=== PATIENT | male | born 1960 | race Asian ===

== ENCOUNTER 2018-09-08 12:09 | Inpatient (IN) | payer OTHER ==
[2018-09-08] MEDS: SOD CHLORIDE 0.9% 1,000 ML IV ×2 (01:30→15:54)
[~2018-09-08 12:09] MED LIST: ALBUMIN HUMAN 25% 100 ML INJ; ALBUMIN HUMAN 5% 250 ML INJ; CA CHLORIDE 10% 10 ML SYRINGE; CEFAZOLIN 1 GM INJ; KETAMINE (50 MG/ML) 10 ML VIAL; NA BICARBONATE 8.4% 50 ML SYG; ONDANSETRON 4 MG INJ; metroNIDAZOLE 500 MG/100 ML NS IVPB
[2018-09-08] MEDS: morphine 4 MG/ML VIAL IV ×2 (15:14→17:30)
[2018-09-08 15:45] LABS: WHITE BLOOD COUNT 15.3 10^3/ul (4.8-10.8)
[2018-09-08 15:45] LABS: ABNORMAL IP MESSAGE 1; HEMOGLOBIN 11.7 g/dl (14.0-18.0); MEAN CORPUSCULAR HEMOGLOBIN 31.4 pg (29.0-33.0); MEAN CORPUSCULAR HGB CONC 32.5 g/dl (32.0-37.0); MEAN CORPUSCULAR VOLUME 96.5 fl (82.0-101.0); NUCLEATED RED BLOOD CELLS% 0.2 /100WBC (0.0-0.0); PLATELET COUNT 498 10^3/UL (140-415); POSITIVE DIFF @See below; RED BLOOD COUNT 3.73 10^6/ul (4.70-6.10); RED CELL DISTRIBUTION WIDTH 16.1 % (11.5-14.5)
[2018-09-08] MEDS: ONDANSETRON 4 MG INJ IV (15:54)
[2018-09-08] MEDS: KETOROLAC 30 MG INJ IV (15:54)
[2018-09-08 16:07] LABS: ALANINE AMINOTRANSFERASE 17 IU/L (13-69); ALBUMIN 3.3 g/dl (3.3-4.9); ALBUMIN/GLOBULIN RATIO 0.89; ALKALINE PHOSPHATASE 203 IU/L (42-121); ANION GAP 11 (5-13); ASPARTATE AMINO TRANSFERASE 36 IU/L (15-46); BILIRUBIN,INDIRECT 0.5 mg/dl (0-1.1); BILIRUBIN,TOTAL 0.5 mg/dl (0.2-1.3); BLOOD UREA NITROGEN 40 mg/dl (7-20); CARBON DIOXIDE 24 mmol/L (21-31); CHLORIDE 104 mmol/L (97-110); Estimated GFR 35 mL/min (>60); GLUCOSE 76 mg/dl (70-220); LIPASE 206 U/L (23-300); POTASSIUM 5.4 mmol/L (3.5-5.1); SODIUM 139 mmol/L (135-144)
[2018-09-08 16:13] LABS: ADD MAN DIFF? YES
[2018-09-08 16:18] LABS: TROPONIN-I < 0.012 ng/ml (0.000-0.120)
[2018-09-08] MEDS: SODIUM CHLORIDE 0.9% 1L BAG IV* (16:41)
[2018-09-08] MEDS: PIPER-TAZO 3.375 GM IV (PMX) 100 ML IVPB (16:41)
[2018-09-08] MEDS ORDERED: ONDANSETRON 4 MG INJ IV ×3 (17:00→22:00)
[2018-09-08] MEDS ORDERED: ACETAMINOPHEN 325 MG TAB PO (17:00)
[2018-09-08 17:03] LABS: ANISOCYTOSIS 1+ (0-0); BAND NEUTROPHILS #M 10.4 10^3/ul (0.0-0.6); BAND NEUTROPHILS % (M) 68 % (0-4); LYMPHOCYTES #M 0.7 10^3/ul (0.8-2.9); LYMPHOCYTES % (M) 5 % (15-51); MONOCYTE #M 1.2 10^3/ul (0.3-0.9); MONOCYTES % (M) 8 % (0-11); PLATELET ESTIMATE INCREASED; POIKILOCYTOSIS 1+ (0-0); POLYCHROMASIA 1+ (0-0); REACTIVE LYMPHOCYTES #M 0.9 10^3/ul (0.0-0.0); REACTIVE LYMPHOCYTES% (M) 6 % (0-0); SEG NEUT #M 3.6 10^3/ul (1.6-7.5); SEGMENTED NEUTROPHILS (M) % 13 % (39-77); SMUDGE%M 56 % (0-0)
[2018-09-08] MEDS ORDERED: NACL 0.9% 3 ML SYG IV (17:30)
[2018-09-08] MEDS: CALCIUM GLUCONATE 10% 2 GM in DEXTROSE 5% 100 ML IVPB (17:30)
[2018-09-08 17:42] LABS: URIC ACID 13.3 mg/dl (3.1-7.9)
[2018-09-08 17:51] LABS: B-TYPE NATRIURETIC PEPTIDE 27300 PG/ML (0-125)
[2018-09-08 17:57] LABS: HEMOGLOBIN A1C 5.6 % (0-5.9)
[2018-09-08] MEDS ORDERED: PIPER-TAZO 3.375 GM IV (PMX) 100 ML IVPB (18:00)
[2018-09-08] MEDS: PANTOPRAZOLE 40 MG INJ IV (18:00)
[2018-09-08 18:14] LABS: C-REACTIVE PROTEIN 14.3 mg/dl (0.0-0.9)
[2018-09-08] MEDS ORDERED: FENTAnyl 50 MCG/ML VIAL (19:15)
[2018-09-08] MEDS ORDERED: METHYLENE BLUE 1% 10 ML INJ (20:43)
[2018-09-08] MEDS ORDERED: ETOMIDATE 20 MG INJ (20:59)
[2018-09-08] MEDS ORDERED: GLYCOPYRROLATE 0.4 MG INJ (21:00)
[2018-09-08] MEDS ORDERED: LIDOCAINE 2% (SDV) 5 ML INJ (21:00)
[2018-09-08] MEDS ORDERED: SUCCINYLCHOLINE CHLORIDE 100 MG/5 ML SYG IV (21:00)
[2018-09-08] MEDS ORDERED: ROCURONIUM 50 MG INJ (21:00)
[2018-09-08] MEDS ORDERED: NEOSTIGMINE 3 MG/3 ML SYRINGE (21:00)
[2018-09-08] MEDS ORDERED: ROPIVACAINE 0.5 % 30 ML VIAL (21:00)
[2018-09-08] MEDS ORDERED: THROMBIN (BOVINE) 5,000 UNIT VIAL TP (21:13)
[2018-09-08] MEDS: CEFAZOLIN 1 GM INJ (21:18)
[2018-09-08] MEDS ORDERED: PHENYLephrine 10 MG INJ (21:38)
[2018-09-08] MEDS ORDERED: SUGAMMADEX SODIUM 200 MG/2 ML VIAL IV (22:05)
[2018-09-08 22:56] LABS: ABNORMAL IP MESSAGE 1; HEMATOCRIT 29.7 % (42.0-52.0); HEMOGLOBIN 9.3 g/dl (14.0-18.0); MEAN CORPUSCULAR HEMOGLOBIN 30.8 pg (29.0-33.0); MEAN CORPUSCULAR HGB CONC 31.3 g/dl (32.0-37.0); MEAN CORPUSCULAR VOLUME 98.3 fl (82.0-101.0); MEAN PLATELET VOLUME 9.2 fl (7.4-10.4); NUCLEATED RED BLOOD CELLS% 0.1 /100WBC (0.0-0.0); PLATELET COUNT 419 10^3/UL (140-415); POSITIVE DIFF @See below; RED BLOOD COUNT 3.02 10^6/ul (4.70-6.10); RED CELL DISTRIBUTION WIDTH 16.4 % (11.5-14.5)
[2018-09-08 22:56] LABS: WHITE BLOOD COUNT 23.2 10^3/ul (4.8-10.8)
[2018-09-08 22:59] LABS: HOLD TRANSMISSIONS 1
[2018-09-08 23:00] LABS: ADD MAN DIFF? YES
[2018-09-08 23:03] LABS: ADD UMIC YES; UR ASCORBIC ACID NEGATIVE (NEGATIVE); UR BACTERIA FEW /HPF (NONE SEEN); UR BILIRUBIN (Dip) NEGATIVE (NEGATIVE); UR BLOOD (Dip) 1+ mg/dL (NEGATIVE); UR CLARITY SLIGHTLY CLOUDY (CLEAR); UR COLOR YELLOW (YELLOW); UR GLUCOSE (Dip) NEGATIVE (NEGATIVE); UR KETONES (Dip) NEGATIVE (NEGATIVE); UR LEUKOCYTE ESTERASE (Dip) TRACE Leu/ul (NEGATIVE); UR MUCUS FEW /HPF (NONE SEEN); UR NITRITE (Dip) NEGATIVE (NEGATIVE); UR RBC 4 /HPF (0-5); UR SPECIFIC GRAVITY (Dip) 1.016 (1.003-1.030); UR SQUAMOUS EPITHELIAL CELL FEW /HPF (FEW); UR TOTAL PROTEIN (Dip) 2+ mg/dl (NEGATIVE); UR UROBILINOGEN (Dip) NEGATIVE (NEGATIVE); UR WBC 4 /HPF (0-5)
[2018-09-08 23:08] LABS: AADO2 Arterial 247.3 mmHg (7.0-24.0); Arterial Base Excess -6.8 mmol/L (-3.0-3); Arterial Blood Gas Oxygen Sat 98.2 mmHG (95.0-98.0); Arterial COHb 0.1 % (0.0-3.0); Arterial HCO3 18.7 mmol/L (22.0-26.0); Arterial MetHb 0.1 % (0.0-1.5); Arterial pCO2 37.3 mmhg (35-45); MODE MASK - SIMPLE; Site A-Line
[2018-09-08] MEDS ORDERED: NA BICARBONATE 8.4% 50 ML SYG (23:09)
[2018-09-08 23:14] LABS: ALANINE AMINOTRANSFERASE 23 IU/L (13-69); ALBUMIN 3.4 g/dl (3.3-4.9); ALBUMIN/GLOBULIN RATIO 1.21; ALKALINE PHOSPHATASE 119 IU/L (42-121); ANION GAP 14 (5-13); ASPARTATE AMINO TRANSFERASE 36 IU/L (15-46); BILIRUBIN,INDIRECT 0.3 mg/dl (0-1.1); BILIRUBIN,TOTAL 0.3 mg/dl (0.2-1.3); CALCIUM 9.3 mg/dl (8.4-10.2); CARBON DIOXIDE 18 mmol/L (21-31); CHLORIDE 109 mmol/L (97-110); Estimated GFR 36 mL/min (>60); GLUCOSE 67 mg/dl (70-220); SODIUM 141 mmol/L (135-144); TOTAL PROTEIN 6.2 g/dl (6.1-8.1)
[2018-09-08 23:14] LABS: LACTIC ACID 1.8 mmol/L (0.5-2.0)
[2018-09-08 23:15] LABS: BLOOD UREA NITROGEN 38 mg/dl (7-20); CREATININE 1.95 mg/dl (0.61-1.24); POTASSIUM 5.3 mmol/L (3.5-5.1)
[2018-09-08 23:16] LABS: INR 1.89; PROTIME 21.8 Sec (11.9-14.9); PT RATIO 1.7
[2018-09-08 23:17] LABS: AMPHETAMINE/METHAMPHETAMINE Negative (NEGATIVE); BARBITURATES Negative (NEGATIVE); BENZODIAZEPINES Negative (NEGATIVE); CANNABINOIDS Negative (NEGATIVE); COCAINE Negative (NEGATIVE); OPIATES Positive (NEGATIVE)
[2018-09-08] MEDS: NA BICARBONATE 8.4% 50 ML SYG IV (23:21)
[2018-09-08 23:23] LABS: PARTIAL THROMBOPLASTIN TIME 40.5 Sec (23.0-35.0)
[2018-09-08 23:27] LABS: ACANTHOCYTES 1+ (0-0); ANISOCYTOSIS 1+ (0-0); BAND NEUTROPHILS #M 17.4 10^3/ul (0.0-0.6); BAND NEUTROPHILS % (M) 75 % (0-4); BURR CELLS 1+ (0-0); LYMPHOCYTES #M 0.6 10^3/ul (0.8-2.9); LYMPHOCYTES % (M) 3 % (15-51); METAMYELOCYTES #M 0.9 10^3/ul (0.0-0.0); METAMYELOCYTES %M 4 % (0-0); MONOCYTE #M 0.6 10^3/ul (0.3-0.9); MONOCYTES % (M) 3 % (0-11); OVALOCYTES 1+ (0-0); PLATELET ESTIMATE INCREASED; POIKILOCYTOSIS 2+ (0-0); POLYCHROMASIA 3+ (0-0); SEG NEUT #M 7.5 10^3/ul (1.6-7.5); SEGMENTED NEUTROPHILS (M) % 15 % (39-77); SMUDGE%M 3 % (0-0)
[2018-09-09 00:13] LABS: AADO2 Arterial 147.3 mmHg (7.0-24.0); Arterial Base Excess -3.3 mmol/L (-3.0-3); Arterial Blood Gas Oxygen Sat 97.6 mmHG (95.0-98.0); Arterial COHb 0.1 % (0.0-3.0); Arterial Fraction of Oxyhgb 97.3 % (93.0-99.0); Arterial HCO3 21.5 mmol/L (22.0-26.0); Arterial MetHb 0.2 % (0.0-1.5); Arterial pCO2 37.5 mmhg (35-45); MODE MASK - SIMPLE; Site A-Line
[2018-09-09] MEDS ORDERED: ALBUMIN HUMAN 25% 200 ML (00:57)
[2018-09-09] MEDS ORDERED: ALBUMIN HUMAN 5% 500 ML (00:58)
[2018-09-09] MEDS ORDERED: SOD CHLORIDE 0.9% 1,000 ML IV (01:00)
[2018-09-09] MEDS: NA BICARBONATE 8.4% 50 ML SYG IV ×2 (01:07→10:27)
[2018-09-09] MEDS: ALBUMIN HUMAN 25% 100 ML IV ×3 (01:09→07:46)
[2018-09-09] MEDS: CA CHLORIDE 10% 10 ML SYRINGE IV ×2 (01:20→10:27)
[2018-09-09] MEDS: ALBUMIN HUMAN 5% 250 ML IV ×2 (01:27→04:14)
[2018-09-09] MEDS: morphine 2 MG INJ IV (01:29)
[2018-09-09 01:42] LABS: AADO2 Arterial 57.2 mmHg (7.0-24.0); Arterial Base Excess -1.4 mmol/L (-3.0-3); Arterial COHb 0.3 % (0.0-3.0); Arterial Fraction of Oxyhgb 95.5 % (93.0-99.0); Arterial MetHb 0.2 % (0.0-1.5); Arterial pCO2 37.4 mmhg (35-45); MODE NASAL CANNULA; Site A-Line
[2018-09-09] MEDS: MEROPENEM 1 GM/50ML(PMX) 50 ML IVPB ×3 (02:17→20:25)
[2018-09-09] MEDS: SOD CHLORIDE 0.9% 1,000 ML IV ×2 (02:18→03:30)
[2018-09-09 06:02] LABS: ABNORMAL IP MESSAGE 1; HEMATOCRIT 24.4 % (42.0-52.0); HEMOGLOBIN 7.7 g/dl (14.0-18.0); MEAN CORPUSCULAR HEMOGLOBIN 30.9 pg (29.0-33.0); MEAN CORPUSCULAR HGB CONC 31.6 g/dl (32.0-37.0); MEAN PLATELET VOLUME 9.4 fl (7.4-10.4); NUCLEATED RED BLOOD CELLS% 0.1 /100WBC (0.0-0.0); PLATELET COUNT 316 10^3/UL (140-415); POSITIVE DIFF @See below; RED BLOOD COUNT 2.49 10^6/ul (4.70-6.10); RED CELL DISTRIBUTION WIDTH 16.4 % (11.5-14.5)
[2018-09-09 06:02] LABS: WHITE BLOOD COUNT 16.2 10^3/ul (4.8-10.8)
[2018-09-09 06:15] LABS: ADD MAN DIFF? YES
[2018-09-09 06:21] LABS: PHOSPHORUS 5.9 mg/dl (2.5-4.9)
[2018-09-09 06:21] LABS: MAGNESIUM 1.8 mg/dl (1.7-2.5)
[2018-09-09 06:25] LABS: INR 2.28; PROTIME 25.2 Sec (11.9-14.9)
[2018-09-09 06:26] LABS: PARTIAL THROMBOPLASTIN TIME 42.5 Sec (23.0-35.0)
[2018-09-09 06:38] LABS: C-REACTIVE PROTEIN 16.2 mg/dl (0.0-0.9)
[2018-09-09] MEDS ORDERED: ALBUMIN HUMAN 25% 100 ML (07:16)
[2018-09-09] MEDS: PANTOPRAZOLE 40 MG INJ IV ×2 (07:36→17:58)
[2018-09-09 08:24] LABS: LACTIC ACID 1.2 mmol/L (0.5-2.0)
[2018-09-09 08:27] LABS: ANISOCYTOSIS 1+ (0-0); BAND NEUTROPHILS #M 10.6 10^3/ul (0.0-0.6); BAND NEUTROPHILS % (M) 66 % (0-4); BURR CELLS 1+ (0-0); ERYTHROBLAST% (NRBC) (M) 1 % (0-0); HYPOCHROMASIA 2+ (0-0); LYMPHOCYTES #M 0.4 10^3/ul (0.8-2.9); LYMPHOCYTES % (M) 3 % (15-51); MICROCYTOSIS 1+ (0-0); MONOCYTE #M 0.4 10^3/ul (0.3-0.9); MONOCYTES % (M) 3 % (0-11); PLATELET ESTIMATE NORMAL; POIKILOCYTOSIS 1+ (0-0); POLYCHROMASIA 1+ (0-0); SEG NEUT #M 6.3 10^3/ul (1.6-7.5); SEGMENTED NEUTROPHILS (M) % 28 % (39-77); SMUDGE%M 2 % (0-0)
[2018-09-09 08:35] LABS: ALANINE AMINOTRANSFERASE 25 IU/L (13-69); ALBUMIN 3.5 g/dl (3.3-4.9); ALBUMIN/GLOBULIN RATIO 1.45; ALKALINE PHOSPHATASE 81 IU/L (42-121); ANION GAP 12 (5-13); ASPARTATE AMINO TRANSFERASE 48 IU/L (15-46); BILIRUBIN,INDIRECT 0.2 mg/dl (0-1.1); BILIRUBIN,TOTAL 0.2 mg/dl (0.2-1.3); BLOOD UREA NITROGEN 43 mg/dl (7-20); CARBON DIOXIDE 22 mmol/L (21-31); CHLORIDE 111 mmol/L (97-110); CREATININE 2.49 mg/dl (0.61-1.24); Estimated GFR 27 mL/min (>60); GLUCOSE 51 mg/dl (70-220); SODIUM 145 mmol/L (135-144); TOTAL PROTEIN 5.9 g/dl (6.1-8.1)
[2018-09-09 08:39] LABS: B-TYPE NATRIURETIC PEPTIDE 25400 PG/ML (0-125)
[2018-09-09 09:26] LABS: CHOLESTEROL 54 mg/dl (100-200)
[2018-09-09 09:26] LABS: HDL CHOLESTEROL 18 mg/dl (28-71); LDL CHOLESTEROL,CALCULATED 27 mg/dl; TRIGLYCERIDES 43 mg/dl (0-149)
[2018-09-09] MEDS: DEXTROSE 5%-0.45% NACL 1,000 ML IV (10:27)
[2018-09-09] MEDS: DEXTROSE 50% 50 ML SYRINGE IV ×3 (10:46→22:26)
[2018-09-09] MEDS: INSULIN REGULAR, HUMAN 100 UNIT/1 ML 3ML VIAL IVP (10:59)
[2018-09-09] MEDS: SOD CHLORIDE 0.9% 250 ML IV* (11:07)
[2018-09-09 11:11] LABS: IMMEDIATE SPIN CROSSMATCH 1 1
[2018-09-09 16:46] LABS: HEMATOCRIT 28.7 % (42.0-52.0); HEMOGLOBIN 9.1 g/dl (14.0-18.0)
[2018-09-09 17:06] LABS: ANION GAP 11 (5-13); BLOOD UREA NITROGEN 47 mg/dl (7-20); CALCIUM 9.5 mg/dl (8.4-10.2); CARBON DIOXIDE 24 mmol/L (21-31); CHLORIDE 111 mmol/L (97-110); CREATININE 2.91 mg/dl (0.61-1.24); Estimated GFR 23 mL/min (>60); POTASSIUM 4.8 mmol/L (3.5-5.1); SODIUM 146 mmol/L (135-144)
[2018-09-09 17:15] LABS: GLUCOSE 39 mg/dl (70-220)
[2018-09-09] MEDS ORDERED: GLUCAGON 1 MG INJ IM (18:00)
[2018-09-09] MEDS ORDERED: GLUCOSE GEL 15 GRAM TUBE BUCCAL (18:00)
[2018-09-09] MEDS ORDERED: DEXTROSE 50% 50 ML SYRINGE IV (18:00)
[2018-09-09] MEDS ORDERED: GLUCOSE GEL 15 GRAM TUBE PO ×2 (18:00)
[2018-09-09 18:30] LABS: ADD UMIC YES; UR ASCORBIC ACID NEGATIVE (NEGATIVE); UR BACTERIA FEW /HPF (NONE SEEN); UR BILIRUBIN (Dip) NEGATIVE (NEGATIVE); UR BLOOD (Dip) 2+ mg/dL (NEGATIVE); UR CLARITY SLIGHTLY CLOUDY (CLEAR); UR COLOR YELLOW (YELLOW); UR GLUCOSE (Dip) NEGATIVE (NEGATIVE); UR GRANULAR CAST FEW /HPF (NONE SEEN); UR KETONES (Dip) NEGATIVE (NEGATIVE); UR LEUKOCYTE ESTERASE (Dip) 2+ Leu/ul (NEGATIVE); UR NITRITE (Dip) NEGATIVE (NEGATIVE); UR RBC 23 /HPF (0-5); UR SPECIFIC GRAVITY (Dip) 1.014 (1.003-1.030); UR TOTAL PROTEIN (Dip) 1+ mg/dl (NEGATIVE); UR UROBILINOGEN (Dip) NEGATIVE (NEGATIVE); UR WBC 13 /HPF (0-5)
[2018-09-09 18:44] LABS: SODIUM,URINE RANDOM 58 mmol/L (30-90)
[2018-09-09 18:44] LABS: CREATININE,URINE RANDOM 62.32 mg/dl (20-370)
[2018-09-09] MEDS: CLOTRIMAZOLE 1% 30 GM CR TOP (20:25)
[2018-09-09] MEDS: DEXTROSE 10% 1,000 ML IV (22:38)
[2018-09-10 04:52] LABS: WHITE BLOOD COUNT 20.7 10^3/ul (4.8-10.8)
[2018-09-10 04:52] LABS: ABNORMAL IP MESSAGE 1; HEMATOCRIT 27.6 % (42.0-52.0); MEAN CORPUSCULAR HEMOGLOBIN 31.4 pg (29.0-33.0); MEAN CORPUSCULAR HGB CONC 32.6 g/dl (32.0-37.0); MEAN CORPUSCULAR VOLUME 96.2 fl (82.0-101.0); MEAN PLATELET VOLUME 9.6 fl (7.4-10.4); NUCLEATED RED BLOOD CELLS% 0.1 /100WBC (0.0-0.0); PLATELET COUNT 304 10^3/UL (140-415); POSITIVE DIFF @See below; RED BLOOD COUNT 2.87 10^6/ul (4.70-6.10); RED CELL DISTRIBUTION WIDTH 17.2 % (11.5-14.5)
[2018-09-10 05:04] LABS: ADD MAN DIFF? YES
[2018-09-10 05:19] LABS: MAGNESIUM 1.9 mg/dl (1.7-2.5); URIC ACID 11.5 mg/dl (3.1-7.9)
[2018-09-10 05:19] LABS: PHOSPHORUS 5.2 mg/dl (2.5-4.9)
[2018-09-10 05:21] LABS: ALANINE AMINOTRANSFERASE 26 IU/L (13-69); ALBUMIN 3.2 g/dl (3.3-4.9); ALBUMIN/GLOBULIN RATIO 1.23; ALKALINE PHOSPHATASE 94 IU/L (42-121); ANION GAP 13 (5-13); ASPARTATE AMINO TRANSFERASE 50 IU/L (15-46); BILIRUBIN,INDIRECT 0.3 mg/dl (0-1.1); BILIRUBIN,TOTAL 0.3 mg/dl (0.2-1.3); BLOOD UREA NITROGEN 49 mg/dl (7-20); CALCIUM 8.6 mg/dl (8.4-10.2); CARBON DIOXIDE 22 mmol/L (21-31); CHLORIDE 109 mmol/L (97-110); CREATININE 3.45 mg/dl (0.61-1.24); Estimated GFR 19 mL/min (>60); GLUCOSE 90 mg/dl (70-220); POTASSIUM 4.5 mmol/L (3.5-5.1); SODIUM 144 mmol/L (135-144); TOTAL PROTEIN 5.8 g/dl (6.1-8.1)
[2018-09-10 05:25] LABS: B-TYPE NATRIURETIC PEPTIDE 32300 PG/ML (0-125)
[2018-09-10] MEDS: PANTOPRAZOLE 40 MG INJ IV ×2 (05:26→18:55)
[2018-09-10 07:33] LABS: ANISOCYTOSIS 2+ (0-0); BAND NEUTROPHILS #M 9.9 10^3/ul (0.0-0.6); BAND NEUTROPHILS % (M) 48 % (0-4); BURR CELLS 1+ (0-0); LYMPHOCYTES #M 0.2 10^3/ul (0.8-2.9); LYMPHOCYTES % (M) 1 % (15-51); METAMYELOCYTES #M 0.2 10^3/ul (0.0-0.0); METAMYELOCYTES %M 1 % (0-0); MONOCYTE #M 0.8 10^3/ul (0.3-0.9); MONOCYTES % (M) 4 % (0-11); OVALOCYTES 1+ (0-0); PLATELET ESTIMATE NORMAL; POIKILOCYTOSIS 1+ (0-0); POLYCHROMASIA 2+ (0-0); SEG NEUT #M 11.6 10^3/ul (1.6-7.5); SEGMENTED NEUTROPHILS (M) % 46 % (39-77); SMUDGE%M 12 % (0-0)
[2018-09-10] MEDS: LINEZOLID 600 MG/D5W (PMX) 300 ML IVPB (08:36)
[2018-09-10] MEDS: CLOTRIMAZOLE 1% 30 GM CR TOP (08:38)
[2018-09-10] MEDS ORDERED: AMMONIUM LACTATE 12% 225 GM LOT TOP (09:00)
[2018-09-10] MEDS: AMMONIUM LACTATE 12% 225 GM LOT TOP (09:54)
[2018-09-10] MEDS: DEXTROSE 10% 1,000 ML IV (11:05)
[2018-09-10] MEDS: PIPER-TAZO 2.25 GM (PMX) 50 ML IVPB ×2 (11:05→18:56)
[2018-09-10] MEDS: morphine 2 MG INJ IV (20:35)
[2018-09-11] MEDS: LINEZOLID 600 MG/D5W (PMX) 300 ML IVPB (00:32)
[2018-09-11] MEDS: CLOTRIMAZOLE 1% 30 GM CR TOP ×3 (00:33→20:24)
[2018-09-11] MEDS: DEXTROSE 10% 1,000 ML IV ×3 (01:10→23:21)
[2018-09-11] MEDS: PIPER-TAZO 2.25 GM (PMX) 50 ML IVPB ×4 (01:43→17:58)
[2018-09-11] MEDS: PANTOPRAZOLE 40 MG INJ IV ×2 (05:07→17:58)
[2018-09-11] MEDS: morphine 2 MG INJ IV ×3 (05:08→13:38)
[2018-09-11 05:37] LABS: ADD MAN DIFF? NO
[2018-09-11 05:45] LABS: BASOPHIL # 0.1 10^3/ul (0.0-0.1); BASOPHILS % 0.4 % (0.0-2.0); EOSINOPHILS # 0.7 10^3/ul (0.0-0.5); EOSINOPHILS % 3.3 % (0.0-7.0); HEMOGLOBIN 9.2 g/dl (14.0-18.0); LYMPHOCYTES # 0.6 10^3/ul (0.8-2.9); LYMPHOCYTES % 3.2 % (15.0-51.0); MEAN CORPUSCULAR HEMOGLOBIN 30.6 pg (29.0-33.0); MEAN CORPUSCULAR HGB CONC 31.7 g/dl (32.0-37.0); MEAN CORPUSCULAR VOLUME 96.3 fl (82.0-101.0); MEAN PLATELET VOLUME 9.4 fl (7.4-10.4); MONOCYTE # 1.3 10^3/ul (0.3-0.9); MONOCYTES % 6.5 % (0.0-11.0); NEUTROPHIL # 16.9 10^3/ul (1.6-7.5); NEUTROPHILS % 85.3 % (39.0-77.0); NUCLEATED RED BLOOD CELLS # 0.1 10^3/ul (0.0-0.0); NUCLEATED RED BLOOD CELLS% 0.3 /100WBC (0.0-0.0); PLATELET COUNT 266 10^3/UL (140-415); RED BLOOD COUNT 3.01 10^6/ul (4.70-6.10); RED CELL DISTRIBUTION WIDTH 16.5 % (11.5-14.5)
[2018-09-11 05:45] LABS: WHITE BLOOD COUNT 19.8 10^3/ul (4.8-10.8)
[2018-09-11 06:24] LABS: PHOSPHORUS 4.9 mg/dl (2.5-4.9)
[2018-09-11 06:24] LABS: MAGNESIUM 1.9 mg/dl (1.7-2.5)
[2018-09-11 06:53] LABS: ANION GAP 14 (5-13); BLOOD UREA NITROGEN 57 mg/dl (7-20); CALCIUM 8.6 mg/dl (8.4-10.2); CARBON DIOXIDE 21 mmol/L (21-31); CHLORIDE 104 mmol/L (97-110); CREATININE 4.15 mg/dl (0.61-1.24); Estimated GFR 15 mL/min (>60); GLUCOSE 85 mg/dl (70-220); POTASSIUM 4.4 mmol/L (3.5-5.1); SODIUM 139 mmol/L (135-144)
[2018-09-11] MEDS: AMMONIUM LACTATE 12% 225 GM LOT TOP (09:04)
[2018-09-11 16:26] LABS: CREATININE, RANDOM URINE 85 mg/dL (20-320); MICROALBUMIN 39.4 mg/dL; MICROALBUMIN/CREATININE RATIO 464 (<30)
[2018-09-11] MEDS ORDERED: ONDANSETRON 4 MG INJ IV (19:00)
[2018-09-11] MEDS ORDERED: BISACODYL 10 MG SUPP PR (19:00)
[2018-09-12] MEDS: PIPER-TAZO 2.25 GM (PMX) 50 ML IVPB ×4 (00:14→17:20)
[2018-09-12] MEDS: ZOLPIDEM 5 MG TAB PO (03:45)
[2018-09-12] MEDS: PANTOPRAZOLE 40 MG INJ IV ×2 (05:48→17:20)
[2018-09-12] MEDS: morphine 2 MG INJ IV ×2 (05:49→10:45)
[2018-09-12 06:34] LABS: ADD MAN DIFF? NO
[2018-09-12 06:39] LABS: ABNORMAL IP MESSAGE 1; BASOPHIL # 0.1 10^3/ul (0.0-0.1); BASOPHILS % 0.5 % (0.0-2.0); EOSINOPHILS # 0.7 10^3/ul (0.0-0.5); EOSINOPHILS % 5.3 % (0.0-7.0); HEMATOCRIT 30.6 % (42.0-52.0); HEMOGLOBIN 9.9 g/dl (14.0-18.0); LYMPHOCYTES # 0.7 10^3/ul (0.8-2.9); LYMPHOCYTES % 5.2 % (15.0-51.0); MEAN CORPUSCULAR HEMOGLOBIN 30.8 pg (29.0-33.0); MEAN CORPUSCULAR HGB CONC 32.4 g/dl (32.0-37.0); MEAN CORPUSCULAR VOLUME 95.3 fl (82.0-101.0); MEAN PLATELET VOLUME 9.8 fl (7.4-10.4); MONOCYTE # 1.5 10^3/ul (0.3-0.9); MONOCYTES % 11.3 % (0.0-11.0); NEUTROPHIL # 10.4 10^3/ul (1.6-7.5); NEUTROPHILS % 76.4 % (39.0-77.0); NUCLEATED RED BLOOD CELLS # 0.1 10^3/ul (0.0-0.0); NUCLEATED RED BLOOD CELLS% 0.4 /100WBC (0.0-0.0); PLATELET COUNT 245 10^3/UL (140-415); POSITIVE DIFF @See below; RED BLOOD COUNT 3.21 10^6/ul (4.70-6.10); RED CELL DISTRIBUTION WIDTH 16.2 % (11.5-14.5)
[2018-09-12 06:39] LABS: WHITE BLOOD COUNT 13.7 10^3/ul (4.8-10.8)
[2018-09-12 07:03] LABS: ANION GAP 15 (5-13); BLOOD UREA NITROGEN 61 mg/dl (7-20); CALCIUM 8.4 mg/dl (8.4-10.2); CARBON DIOXIDE 21 mmol/L (21-31); CHLORIDE 102 mmol/L (97-110); CREATININE 4.64 mg/dl (0.61-1.24); Estimated GFR 13 mL/min (>60); GLUCOSE 66 mg/dl (70-220); MAGNESIUM 1.9 mg/dl (1.7-2.5); PHOSPHORUS 5.5 mg/dl (2.5-4.9); POTASSIUM 4.4 mmol/L (3.5-5.1); SODIUM 138 mmol/L (135-144)
[2018-09-12] MEDS: ENOXAPARIN 30 MG/0.3 ML SYG SC (08:13)
[2018-09-12] MEDS: CLOTRIMAZOLE 1% 30 GM CR TOP ×3 (10:30→20:30)
[2018-09-12] MEDS: AMMONIUM LACTATE 12% 225 GM LOT TOP ×2 (10:30→11:53)
[2018-09-12] MEDS: HYDROCODONE/APAP (10/325) TAB PO (11:49)
[2018-09-12] MEDS ORDERED: CLOTRIMAZOLE 1% 30 GM CR TOP (21:00)
[2018-09-13] MEDS: PIPER-TAZO 2.25 GM (PMX) 50 ML IVPB ×4 (01:05→21:15)
[2018-09-13] MEDS: morphine 2 MG INJ IV ×4 (01:29→21:15)
[2018-09-13] MEDS: PANTOPRAZOLE 40 MG INJ IV ×2 (05:08→18:10)
[2018-09-13] MEDS: ENOXAPARIN 30 MG/0.3 ML SYG SC (08:38)
[2018-09-13] MEDS ORDERED: AMMONIUM LACTATE 12% 225 GM LOT TOP (09:00)
[2018-09-13] MEDS: AMMONIUM LACTATE 12% 225 GM LOT TOP (09:00)
[2018-09-13] MEDS: CLOTRIMAZOLE 1% 30 GM CR TOP ×2 (09:00→21:15)
[2018-09-13 10:25] LABS: ADD MAN DIFF? NO
[2018-09-13 10:30] LABS: ABNORMAL IP MESSAGE 1; BASOPHIL # 0.1 10^3/ul (0.0-0.1); BASOPHILS % 0.7 % (0.0-2.0); EOSINOPHILS # 0.6 10^3/ul (0.0-0.5); EOSINOPHILS % 4.7 % (0.0-7.0); HEMATOCRIT 33.5 % (42.0-52.0); HEMOGLOBIN 10.9 g/dl (14.0-18.0); LYMPHOCYTES # 0.7 10^3/ul (0.8-2.9); MEAN CORPUSCULAR HEMOGLOBIN 30.1 pg (29.0-33.0); MEAN CORPUSCULAR HGB CONC 32.5 g/dl (32.0-37.0); MEAN CORPUSCULAR VOLUME 92.5 fl (82.0-101.0); MEAN PLATELET VOLUME 9.6 fl (7.4-10.4); MONOCYTE # 1.6 10^3/ul (0.3-0.9); NEUTROPHIL # 10.3 10^3/ul (1.6-7.5); NEUTROPHILS % 76.2 % (39.0-77.0); NUCLEATED RED BLOOD CELLS% 0.1 /100WBC (0.0-0.0); PLATELET COUNT 227 10^3/UL (140-415); POSITIVE DIFF @See below; RED BLOOD COUNT 3.62 10^6/ul (4.70-6.10); RED CELL DISTRIBUTION WIDTH 15.8 % (11.5-14.5)
[2018-09-13 10:30] LABS: WHITE BLOOD COUNT 13.5 10^3/ul (4.8-10.8)
[2018-09-13 10:46] LABS: ANION GAP 13 (5-13); BLOOD UREA NITROGEN 65 mg/dl (7-20); CALCIUM 8.6 mg/dl (8.4-10.2); CARBON DIOXIDE 23 mmol/L (21-31); CHLORIDE 101 mmol/L (97-110); CREATININE 4.94 mg/dl (0.61-1.24); Estimated GFR 12 mL/min (>60); GLUCOSE 99 mg/dl (70-220); MAGNESIUM 1.9 mg/dl (1.7-2.5); PHOSPHORUS 6.4 mg/dl (2.5-4.9); POTASSIUM 4.4 mmol/L (3.5-5.1); SODIUM 137 mmol/L (135-144)
[2018-09-13] MEDS: BISACODYL (EC) 5 MG TAB PO (11:07)
[2018-09-13] MEDS: METOCLOPRAMIDE 10 MG INJ IV ×2 (11:08→18:10)
[2018-09-14] MEDS: METOCLOPRAMIDE 10 MG INJ IV ×5 (01:22→23:49)
[2018-09-14] MEDS: morphine 2 MG INJ IV ×3 (03:32→23:58)
[2018-09-14 06:07] LABS: ADD MAN DIFF? NO
[2018-09-14 06:08] LABS: WHITE BLOOD COUNT 13.4 10^3/ul (4.8-10.8)
[2018-09-14 06:08] LABS: ABNORMAL IP MESSAGE 1; BASOPHIL # 0.1 10^3/ul (0.0-0.1); BASOPHILS % 0.4 % (0.0-2.0); EOSINOPHILS # 0.7 10^3/ul (0.0-0.5); EOSINOPHILS % 5.4 % (0.0-7.0); HEMATOCRIT 32.6 % (42.0-52.0); HEMOGLOBIN 10.8 g/dl (14.0-18.0); LYMPHOCYTES # 0.7 10^3/ul (0.8-2.9); LYMPHOCYTES % 5.5 % (15.0-51.0); MEAN CORPUSCULAR HEMOGLOBIN 30.3 pg (29.0-33.0); MEAN CORPUSCULAR HGB CONC 33.1 g/dl (32.0-37.0); MEAN CORPUSCULAR VOLUME 91.3 fl (82.0-101.0); MEAN PLATELET VOLUME 9.9 fl (7.4-10.4); MONOCYTE # 1.9 10^3/ul (0.3-0.9); MONOCYTES % 13.8 % (0.0-11.0); NEUTROPHIL # 9.8 10^3/ul (1.6-7.5); NEUTROPHILS % 73.3 % (39.0-77.0); NUCLEATED RED BLOOD CELLS% 0.1 /100WBC (0.0-0.0); PLATELET COUNT 208 10^3/UL (140-415); POSITIVE DIFF @See below; RED BLOOD COUNT 3.57 10^6/ul (4.70-6.10); RED CELL DISTRIBUTION WIDTH 15.8 % (11.5-14.5)
[2018-09-14] MEDS: PIPER-TAZO 2.25 GM (PMX) 50 ML IVPB ×3 (06:08→21:53)
[2018-09-14] MEDS: FAMOTIDINE 20 MG INJ IV (06:08)
[2018-09-14 06:27] LABS: INR 1.28; PROTIME 16.1 Sec (11.9-14.9); PT RATIO 1.3
[2018-09-14 06:35] LABS: PHOSPHORUS 6.2 mg/dl (2.5-4.9)
[2018-09-14 06:35] LABS: MAGNESIUM 1.8 mg/dl (1.7-2.5)
[2018-09-14 06:40] LABS: ANION GAP 11 (5-13); BLOOD UREA NITROGEN 65 mg/dl (7-20); CALCIUM 8.3 mg/dl (8.4-10.2); CARBON DIOXIDE 25 mmol/L (21-31); CHLORIDE 98 mmol/L (97-110); CREATININE 5.16 mg/dl (0.61-1.24); Estimated GFR 12 mL/min (>60); GLUCOSE 87 mg/dl (70-220); SODIUM 134 mmol/L (135-144)
[2018-09-14] MEDS: CLOTRIMAZOLE 1% 30 GM CR TOP ×2 (08:48→20:53)
[2018-09-14] MEDS: AMMONIUM LACTATE 12% 225 GM LOT TOP (08:48)
[2018-09-14] MEDS: ENOXAPARIN 30 MG/0.3 ML SYG SC (08:50)
[2018-09-14] MEDS: BISACODYL (EC) 5 MG TAB PO (13:57)
[2018-09-14] MEDS: HYDROCODONE/APAP (10/325) TAB PO ×2 (15:56→21:55)
[2018-09-15] MEDS: PIPER-TAZO 2.25 GM (PMX) 50 ML IVPB (05:11)
[2018-09-15] MEDS: FAMOTIDINE 20 MG INJ IV (05:12)
[2018-09-15] MEDS: METOCLOPRAMIDE 10 MG INJ IV ×4 (05:12→23:40)
[2018-09-15] MEDS: morphine 2 MG INJ IV ×3 (05:12→20:55)
[2018-09-15 07:45] LABS: ADD MAN DIFF? NO
[2018-09-15 07:56] LABS: ABNORMAL IP MESSAGE 1; BASOPHIL # 0.1 10^3/ul (0.0-0.1); BASOPHILS % 0.6 % (0.0-2.0); EOSINOPHILS # 0.9 10^3/ul (0.0-0.5); EOSINOPHILS % 6.3 % (0.0-7.0); HEMATOCRIT 32.3 % (42.0-52.0); HEMOGLOBIN 10.6 g/dl (14.0-18.0); LYMPHOCYTES # 0.7 10^3/ul (0.8-2.9); LYMPHOCYTES % 4.9 % (15.0-51.0); MEAN CORPUSCULAR HEMOGLOBIN 29.9 pg (29.0-33.0); MEAN CORPUSCULAR HGB CONC 32.8 g/dl (32.0-37.0); MEAN CORPUSCULAR VOLUME 91.2 fl (82.0-101.0); MEAN PLATELET VOLUME 9.5 fl (7.4-10.4); MONOCYTE # 1.9 10^3/ul (0.3-0.9); NEUTROPHIL # 10.6 10^3/ul (1.6-7.5); NEUTROPHILS % 73.4 % (39.0-77.0); PLATELET COUNT 185 10^3/UL (140-415); POSITIVE DIFF @See below; RED BLOOD COUNT 3.54 10^6/ul (4.70-6.10); RED CELL DISTRIBUTION WIDTH 15.7 % (11.5-14.5)
[2018-09-15 07:56] LABS: WHITE BLOOD COUNT 14.4 10^3/ul (4.8-10.8)
[2018-09-15 08:30] LABS: PHOSPHORUS 6.2 mg/dl (2.5-4.9)
[2018-09-15 08:30] LABS: MAGNESIUM 1.8 mg/dl (1.7-2.5)
[2018-09-15] MEDS: ENOXAPARIN 30 MG/0.3 ML SYG SC (08:36)
[2018-09-15] MEDS: LEVOFLOXACIN 500 MG TAB PO (08:38)
[2018-09-15] MEDS: FLUCONAZOLE 200 MG TAB PO (09:00)
[2018-09-15] MEDS: CLOTRIMAZOLE 1% 30 GM CR TOP ×2 (09:00→20:45)
[2018-09-15] MEDS: AMMONIUM LACTATE 12% 225 GM LOT TOP (09:01)
[2018-09-15 09:13] LABS: ALANINE AMINOTRANSFERASE 15 IU/L (13-69); ALBUMIN 2.9 g/dl (3.3-4.9); ALBUMIN/GLOBULIN RATIO 0.96; ALKALINE PHOSPHATASE 249 IU/L (42-121); ANION GAP 12 (5-13); ASPARTATE AMINO TRANSFERASE 53 IU/L (15-46); BILIRUBIN,INDIRECT 0.3 mg/dl (0-1.1); BILIRUBIN,TOTAL 0.3 mg/dl (0.2-1.3); BLOOD UREA NITROGEN 62 mg/dl (7-20); CALCIUM 8.1 mg/dl (8.4-10.2); CARBON DIOXIDE 24 mmol/L (21-31); CHLORIDE 100 mmol/L (97-110); CREATININE 4.75 mg/dl (0.61-1.24); Estimated GFR 13 mL/min (>60); GLUCOSE 89 mg/dl (70-220); POTASSIUM 4.1 mmol/L (3.5-5.1); SODIUM 136 mmol/L (135-144); TOTAL PROTEIN 5.9 g/dl (6.1-8.1)
[2018-09-15] MEDS: HYDROCODONE/APAP (10/325) TAB PO (18:08)
[2018-09-15] MEDS: QUETIAPINE 25 MG TAB PO (20:45)
[2018-09-15] MEDS: SENNA/DOCUSATE NA (8.6MG/50MG) TAB PO (20:45)
[2018-09-15] MEDS: COLCHICINE 0.6 MG TAB PO (20:46)
[2018-09-15] MEDS ORDERED: traZODone 50 MG TAB PO (21:00)
[2018-09-16] MEDS: METOCLOPRAMIDE 10 MG INJ IV ×3 (05:40→18:09)
[2018-09-16 05:55] LABS: ADD MAN DIFF? NO
[2018-09-16 06:05] LABS: ABNORMAL IP MESSAGE 1; BASOPHIL # 0.1 10^3/ul (0.0-0.1); BASOPHILS % 0.7 % (0.0-2.0); EOSINOPHILS # 0.8 10^3/ul (0.0-0.5); HEMATOCRIT 31.5 % (42.0-52.0); HEMOGLOBIN 10.5 g/dl (14.0-18.0); LYMPHOCYTES % 7.9 % (15.0-51.0); MEAN CORPUSCULAR HEMOGLOBIN 30.6 pg (29.0-33.0); MEAN CORPUSCULAR HGB CONC 33.3 g/dl (32.0-37.0); MEAN CORPUSCULAR VOLUME 91.8 fl (82.0-101.0); MONOCYTE # 1.8 10^3/ul (0.3-0.9); MONOCYTES % 13.8 % (0.0-11.0); NEUTROPHILS % 69.7 % (39.0-77.0); PLATELET COUNT 176 10^3/UL (140-415); POSITIVE DIFF @See below; RED BLOOD COUNT 3.43 10^6/ul (4.70-6.10); RED CELL DISTRIBUTION WIDTH 15.5 % (11.5-14.5)
[2018-09-16 06:44] LABS: URIC ACID 10.1 mg/dl (3.1-7.9)
[2018-09-16 06:46] LABS: ANION GAP 11 (5-13); BLOOD UREA NITROGEN 59 mg/dl (7-20); CALCIUM 8.4 mg/dl (8.4-10.2); CARBON DIOXIDE 24 mmol/L (21-31); CHLORIDE 98 mmol/L (97-110); CREATININE 4.46 mg/dl (0.61-1.24); Estimated GFR 14 mL/min (>60); GLUCOSE 77 mg/dl (70-220); MAGNESIUM 1.8 mg/dl (1.7-2.5); PHOSPHORUS 6.1 mg/dl (2.5-4.9); SODIUM 133 mmol/L (135-144)
[2018-09-16] MEDS: FAMOTIDINE 20 MG TAB PO (08:55)
[2018-09-16] MEDS: COLCHICINE 0.6 MG TAB PO (08:55)
[2018-09-16] MEDS: FLUCONAZOLE 200 MG TAB PO (08:55)
[2018-09-16] MEDS: QUETIAPINE 25 MG TAB PO ×2 (08:55→20:54)
[2018-09-16] MEDS: CLOTRIMAZOLE 1% 30 GM CR TOP ×2 (08:57→20:55)
[2018-09-16] MEDS: AMMONIUM LACTATE 12% 225 GM LOT TOP (08:57)
[2018-09-16] MEDS: ENOXAPARIN 30 MG/0.3 ML SYG SC ×3 (08:59→09:03)
[2018-09-16] MEDS: traZODone 50 MG TAB PO (20:54)
[2018-09-16] MEDS: SENNA/DOCUSATE NA (8.6MG/50MG) TAB PO (20:54)
[2018-09-17] MEDS: METOCLOPRAMIDE 5 MG TAB PO ×4 (00:26→22:06)
[2018-09-17] MEDS ORDERED: PENDING SANTYL ORDER FOR WOUND CARE XX (05:30)
[2018-09-17] MEDS: LEVOFLOXACIN 250 MG TAB PO (05:44)
[2018-09-17 06:51] LABS: ADD MAN DIFF? NO
[2018-09-17 06:57] LABS: ABNORMAL IP MESSAGE 1; BASOPHIL # 0.1 10^3/ul (0.0-0.1); BASOPHILS % 0.5 % (0.0-2.0); EOSINOPHILS # 0.6 10^3/ul (0.0-0.5); EOSINOPHILS % 4.8 % (0.0-7.0); HEMATOCRIT 28.4 % (42.0-52.0); HEMOGLOBIN 9.4 g/dl (14.0-18.0); LYMPHOCYTES # 0.9 10^3/ul (0.8-2.9); MEAN CORPUSCULAR HEMOGLOBIN 30.1 pg (29.0-33.0); MEAN CORPUSCULAR HGB CONC 33.1 g/dl (32.0-37.0); MEAN PLATELET VOLUME 10.3 fl (7.4-10.4); MONOCYTE # 2.1 10^3/ul (0.3-0.9); MONOCYTES % 16.8 % (0.0-11.0); NEUTROPHIL # 8.6 10^3/ul (1.6-7.5); NEUTROPHILS % 69.8 % (39.0-77.0); PLATELET COUNT 195 10^3/UL (140-415); POSITIVE DIFF @See below; RED BLOOD COUNT 3.12 10^6/ul (4.70-6.10); RED CELL DISTRIBUTION WIDTH 15.8 % (11.5-14.5)
[2018-09-17 06:57] LABS: WHITE BLOOD COUNT 12.3 10^3/ul (4.8-10.8)
[2018-09-17 07:42] LABS: ANION GAP 10 (5-13); BLOOD UREA NITROGEN 56 mg/dl (7-20); CALCIUM 8.2 mg/dl (8.4-10.2); CARBON DIOXIDE 26 mmol/L (21-31); CHLORIDE 102 mmol/L (97-110); Estimated GFR 15 mL/min (>60); GLUCOSE 80 mg/dl (70-220); POTASSIUM 3.9 mmol/L (3.5-5.1); SODIUM 138 mmol/L (135-144)
[2018-09-17] MEDS: FLUCONAZOLE 200 MG TAB PO (08:19)
[2018-09-17] MEDS: HYDROCODONE/APAP (10/325) TAB PO ×2 (08:19→19:57)
[2018-09-17] MEDS: FAMOTIDINE 20 MG TAB PO (08:20)
[2018-09-17] MEDS: QUETIAPINE 25 MG TAB PO ×2 (08:20→20:41)
[2018-09-17] MEDS: ALLOPURINOL 100 MG TAB PO (08:20)
[2018-09-17] MEDS: ENOXAPARIN 30 MG/0.3 ML SYG SC (08:21)
[2018-09-17] MEDS: AMMONIUM LACTATE 12% 225 GM LOT TOP (08:22)
[2018-09-17] MEDS: CLOTRIMAZOLE 1% 30 GM CR TOP ×2 (08:22→20:43)
[2018-09-17] MEDS: traZODone 50 MG TAB PO (20:41)
[2018-09-17] MEDS: SENNA/DOCUSATE NA (8.6MG/50MG) TAB PO (20:41)
[2018-09-18 05:47] LABS: ADD MAN DIFF? NO
[2018-09-18 05:49] LABS: ABNORMAL IP MESSAGE 1; BASOPHIL # 0.1 10^3/ul (0.0-0.1); BASOPHILS % 0.6 % (0.0-2.0); EOSINOPHILS # 0.6 10^3/ul (0.0-0.5); EOSINOPHILS % 4.2 % (0.0-7.0); HEMATOCRIT 30.3 % (42.0-52.0); HEMOGLOBIN 9.9 g/dl (14.0-18.0); LYMPHOCYTES # 1.1 10^3/ul (0.8-2.9); LYMPHOCYTES % 7.8 % (15.0-51.0); MEAN CORPUSCULAR HEMOGLOBIN 29.8 pg (29.0-33.0); MEAN CORPUSCULAR HGB CONC 32.7 g/dl (32.0-37.0); MEAN CORPUSCULAR VOLUME 91.3 fl (82.0-101.0); MEAN PLATELET VOLUME 9.5 fl (7.4-10.4); MONOCYTE # 2.2 10^3/ul (0.3-0.9); NEUTROPHIL # 10.1 10^3/ul (1.6-7.5); NEUTROPHILS % 70.7 % (39.0-77.0); PLATELET COUNT 221 10^3/UL (140-415); POSITIVE DIFF @See below; RED BLOOD COUNT 3.32 10^6/ul (4.70-6.10); RED CELL DISTRIBUTION WIDTH 15.7 % (11.5-14.5)
[2018-09-18 05:49] LABS: WHITE BLOOD COUNT 14.3 10^3/ul (4.8-10.8)
[2018-09-18] MEDS: METOCLOPRAMIDE 5 MG TAB PO ×3 (06:09→21:07)
[2018-09-18 06:28] LABS: MONOCYTES % 15.6 % (0.0-11.0)
[2018-09-18 06:29] LABS: ALANINE AMINOTRANSFERASE 19 IU/L (13-69); ALBUMIN 2.8 g/dl (3.3-4.9); ALKALINE PHOSPHATASE 381 IU/L (42-121); ANION GAP 13 (5-13); ASPARTATE AMINO TRANSFERASE 53 IU/L (15-46); BILIRUBIN,INDIRECT 0.2 mg/dl (0-1.1); BILIRUBIN,TOTAL 0.2 mg/dl (0.2-1.3); BLOOD UREA NITROGEN 55 mg/dl (7-20); CALCIUM 8.4 mg/dl (8.4-10.2); CARBON DIOXIDE 26 mmol/L (21-31); CHLORIDE 100 mmol/L (97-110); CREATININE 3.94 mg/dl (0.61-1.24); Estimated GFR 16 mL/min (>60); GLUCOSE 91 mg/dl (70-220); POTASSIUM 4.2 mmol/L (3.5-5.1); SODIUM 139 mmol/L (135-144); TOTAL PROTEIN 5.9 g/dl (6.1-8.1)
[2018-09-18] MEDS: HYDROCODONE/APAP (10/325) TAB PO ×2 (09:05→17:36)
[2018-09-18] MEDS: FLUCONAZOLE 200 MG TAB PO (09:06)
[2018-09-18] MEDS: ALLOPURINOL 100 MG TAB PO (09:06)
[2018-09-18] MEDS: QUETIAPINE 25 MG TAB PO ×2 (09:06→21:07)
[2018-09-18] MEDS: FAMOTIDINE 20 MG TAB PO (09:06)
[2018-09-18] MEDS: CLOTRIMAZOLE 1% 30 GM CR TOP ×2 (09:07→21:09)
[2018-09-18] MEDS: AMMONIUM LACTATE 12% 225 GM LOT TOP (09:07)
[2018-09-18] MEDS: ENOXAPARIN 30 MG/0.3 ML SYG SC (09:09)
[2018-09-18] MEDS: IOHEXOL 14.3 MG(I)/ML (ADULT) BTL PO (13:30)
[2018-09-18 15:06] LABS: ADD UMIC NO; UR ASCORBIC ACID NEGATIVE (NEGATIVE); UR BILIRUBIN (Dip) NEGATIVE (NEGATIVE); UR BLOOD (Dip) NEGATIVE (NEGATIVE); UR CLARITY CLEAR (CLEAR); UR COLOR YELLOW (YELLOW); UR GLUCOSE (Dip) NEGATIVE (NEGATIVE); UR KETONES (Dip) NEGATIVE (NEGATIVE); UR LEUKOCYTE ESTERASE (Dip) NEGATIVE Leu/ul (NEGATIVE); UR NITRITE (Dip) NEGATIVE (NEGATIVE); UR SPECIFIC GRAVITY (Dip) 1.009 (1.003-1.030); UR TOTAL PROTEIN (Dip) NEGATIVE (NEGATIVE); UR UROBILINOGEN (Dip) NEGATIVE (NEGATIVE)
[2018-09-18] MEDS: SENNA/DOCUSATE NA (8.6MG/50MG) TAB PO (21:06)
[2018-09-18] MEDS: traZODone 50 MG TAB PO (21:06)
[2018-09-19] MEDS: PIPER-TAZO 2.25 GM (PMX) 50 ML IVPB (01:43)
[2018-09-19] MEDS: morphine 2 MG INJ IV ×3 (02:59→13:55)
[2018-09-19] MEDS: METOCLOPRAMIDE 5 MG TAB PO ×3 (06:31→20:54)
[2018-09-19] MEDS: HYDROCODONE/APAP (10/325) TAB PO (07:02)
[2018-09-19 07:38] LABS: ADD MAN DIFF? NO
[2018-09-19 07:46] LABS: ABNORMAL IP MESSAGE 1; BASOPHIL # 0.1 10^3/ul (0.0-0.1); BASOPHILS % 0.5 % (0.0-2.0); EOSINOPHILS # 0.8 10^3/ul (0.0-0.5); EOSINOPHILS % 4.8 % (0.0-7.0); HEMATOCRIT 31.1 % (42.0-52.0); HEMOGLOBIN 9.8 g/dl (14.0-18.0); LYMPHOCYTES # 1.1 10^3/ul (0.8-2.9); LYMPHOCYTES % 6.8 % (15.0-51.0); MEAN CORPUSCULAR HEMOGLOBIN 29.3 pg (29.0-33.0); MEAN CORPUSCULAR HGB CONC 31.5 g/dl (32.0-37.0); MEAN CORPUSCULAR VOLUME 92.8 fl (82.0-101.0); MEAN PLATELET VOLUME 10.1 fl (7.4-10.4); MONOCYTE # 2.2 10^3/ul (0.3-0.9); MONOCYTES % 13.2 % (0.0-11.0); NEUTROPHIL # 12.2 10^3/ul (1.6-7.5); NEUTROPHILS % 73.4 % (39.0-77.0); PLATELET COUNT 269 10^3/UL (140-415); POSITIVE DIFF @See below; RED BLOOD COUNT 3.35 10^6/ul (4.70-6.10); RED CELL DISTRIBUTION WIDTH 15.7 % (11.5-14.5)
[2018-09-19 07:46] LABS: WHITE BLOOD COUNT 16.6 10^3/ul (4.8-10.8)
[2018-09-19 08:04] LABS: PHOSPHORUS 5.8 mg/dl (2.5-4.9)
[2018-09-19 08:04] LABS: MAGNESIUM 1.8 mg/dl (1.7-2.5)
[2018-09-19 08:06] LABS: ANION GAP 10 (5-13); BLOOD UREA NITROGEN 56 mg/dl (7-20); CALCIUM 8.8 mg/dl (8.4-10.2); CARBON DIOXIDE 25 mmol/L (21-31); CHLORIDE 100 mmol/L (97-110); CREATININE 3.68 mg/dl (0.61-1.24); Estimated GFR 17 mL/min (>60); GLUCOSE 83 mg/dl (70-220); POTASSIUM 4.5 mmol/L (3.5-5.1); SODIUM 135 mmol/L (135-144)
[2018-09-19] MEDS: ALLOPURINOL 100 MG TAB PO (09:43)
[2018-09-19] MEDS: QUETIAPINE 25 MG TAB PO ×2 (09:44→20:53)
[2018-09-19] MEDS: FLUCONAZOLE 200 MG TAB PO (09:44)
[2018-09-19] MEDS: FAMOTIDINE 20 MG TAB PO (09:44)
[2018-09-19] MEDS: ENOXAPARIN 30 MG/0.3 ML SYG SC (09:45)
[2018-09-19] MEDS: CLOTRIMAZOLE 1% 30 GM CR TOP ×2 (09:50→21:02)
[2018-09-19] MEDS: AMMONIUM LACTATE 12% 225 GM LOT TOP (09:50)
[2018-09-19] MEDS: CEFTRIAXONE 1 GM/50 ML (PMX) 50 ML IVPB (11:30)
[2018-09-19] MEDS: traZODone 50 MG TAB PO (20:53)
[2018-09-19] MEDS: SENNA/DOCUSATE NA (8.6MG/50MG) TAB PO (20:54)
[2018-09-20] MEDS: morphine 2 MG INJ IV ×2 (03:48→21:00)
[2018-09-20] MEDS: METOCLOPRAMIDE 5 MG TAB PO ×3 (05:59→22:23)
[2018-09-20 06:40] LABS: ADD MAN DIFF? NO
[2018-09-20 06:55] LABS: WHITE BLOOD COUNT 15.5 10^3/ul (4.8-10.8)
[2018-09-20 06:55] LABS: ABNORMAL IP MESSAGE 1; BASOPHIL # 0.1 10^3/ul (0.0-0.1); BASOPHILS % 0.5 % (0.0-2.0); EOSINOPHILS # 0.8 10^3/ul (0.0-0.5); EOSINOPHILS % 4.9 % (0.0-7.0); HEMATOCRIT 26.6 % (42.0-52.0); HEMOGLOBIN 8.5 g/dl (14.0-18.0); LYMPHOCYTES # 1.1 10^3/ul (0.8-2.9); LYMPHOCYTES % 7.4 % (15.0-51.0); MEAN CORPUSCULAR HEMOGLOBIN 29.2 pg (29.0-33.0); MEAN CORPUSCULAR VOLUME 91.4 fl (82.0-101.0); MEAN PLATELET VOLUME 10.3 fl (7.4-10.4); MONOCYTE # 2.5 10^3/ul (0.3-0.9); MONOCYTES % 16.4 % (0.0-11.0); NEUTROPHIL # 10.8 10^3/ul (1.6-7.5); NEUTROPHILS % 69.6 % (39.0-77.0); PLATELET COUNT 286 10^3/UL (140-415); POSITIVE DIFF @See below; RED BLOOD COUNT 2.91 10^6/ul (4.70-6.10); RED CELL DISTRIBUTION WIDTH 15.4 % (11.5-14.5)
[2018-09-20 07:07] LABS: INR 1.18; PROTIME 15.1 Sec (11.9-14.9); PT RATIO 1.2
[2018-09-20 07:36] LABS: ANION GAP 13 (5-13); BLOOD UREA NITROGEN 56 mg/dl (7-20); CALCIUM 8.5 mg/dl (8.4-10.2); CARBON DIOXIDE 24 mmol/L (21-31); CHLORIDE 99 mmol/L (97-110); CREATININE 3.33 mg/dl (0.61-1.24); Estimated GFR 19 mL/min (>60); GLUCOSE 80 mg/dl (70-220); POTASSIUM 4.8 mmol/L (3.5-5.1); SODIUM 136 mmol/L (135-144)
[2018-09-20 07:37] LABS: MAGNESIUM 1.8 mg/dl (1.7-2.5)
[2018-09-20 07:37] LABS: PHOSPHORUS 5.9 mg/dl (2.5-4.9)
[2018-09-20] MEDS: ALLOPURINOL 100 MG TAB PO (08:38)
[2018-09-20] MEDS: FLUCONAZOLE 200 MG TAB PO (08:38)
[2018-09-20] MEDS: QUETIAPINE 25 MG TAB PO ×2 (08:38→20:57)
[2018-09-20] MEDS: FAMOTIDINE 20 MG TAB PO (08:38)
[2018-09-20] MEDS: HYDROCODONE/APAP (10/325) TAB PO (08:39)
[2018-09-20] MEDS: CLOTRIMAZOLE 1% 30 GM CR TOP ×2 (08:39→21:10)
[2018-09-20] MEDS: CEFTRIAXONE 1 GM/50 ML (PMX) 50 ML IVPB (08:39)
[2018-09-20] MEDS: AMMONIUM LACTATE 12% 225 GM LOT TOP (08:40)
[2018-09-20] MEDS: LIDOCAINE 2% (SDV) 5 ML INJ (12:02)
[2018-09-20] MEDS: FENTAnyl 50 MCG/ML VIAL (12:03)
[2018-09-20] MEDS: PROPOFOL 40 ML (12:03)
[2018-09-20] MEDS: MIDAZOLAM 1 MG/ML 2 ML INJ (12:03)
[2018-09-20] MEDS: LIDOCAINE 1% (MDV) 20 ML INJ (14:05)
[2018-09-20 14:10] LABS: FLUID AMYLASE 43 U/L
[2018-09-20 14:11] LABS: FLUID GLUCOSE < 20 mg/dl; FLUID TYPE ABDOMINAL FLUID
[2018-09-20 14:21] LABS: FLD RBC 4000 /uL; FLD WBC 1154 /cmm
[2018-09-20 17:22] LABS: FLD CLARITY SLIGHTLY HAZY; FLD COLOR YELLOW
[2018-09-20 17:22] LABS: FLD TYPE ABDOMINAL
[2018-09-20] MEDS: SENNA/DOCUSATE NA (8.6MG/50MG) TAB PO (20:57)
[2018-09-20] MEDS: traZODone 50 MG TAB PO (20:57)
[2018-09-21] MEDS: METOCLOPRAMIDE 5 MG TAB PO ×3 (06:36→21:27)
[2018-09-21 07:30] LABS: ADD MAN DIFF? NO
[2018-09-21 07:43] LABS: WHITE BLOOD COUNT 13.3 10^3/ul (4.8-10.8)
[2018-09-21 07:43] LABS: ABNORMAL IP MESSAGE 1; BASOPHIL # 0.1 10^3/ul (0.0-0.1); BASOPHILS % 0.6 % (0.0-2.0); EOSINOPHILS # 0.6 10^3/ul (0.0-0.5); EOSINOPHILS % 4.8 % (0.0-7.0); HEMATOCRIT 28.1 % (42.0-52.0); HEMOGLOBIN 8.7 g/dl (14.0-18.0); LYMPHOCYTES # 0.9 10^3/ul (0.8-2.9); LYMPHOCYTES % 7.1 % (15.0-51.0); MEAN CORPUSCULAR HEMOGLOBIN 28.8 pg (29.0-33.0); MEAN PLATELET VOLUME 10.2 fl (7.4-10.4); MONOCYTE # 2.2 10^3/ul (0.3-0.9); MONOCYTES % 16.6 % (0.0-11.0); NEUTROPHIL # 9.3 10^3/ul (1.6-7.5); NEUTROPHILS % 69.9 % (39.0-77.0); PLATELET COUNT 362 10^3/UL (140-415); POSITIVE DIFF @See below; RED BLOOD COUNT 3.02 10^6/ul (4.70-6.10); RED CELL DISTRIBUTION WIDTH 15.8 % (11.5-14.5)
[2018-09-21 08:01] LABS: PHOSPHORUS 6.3 mg/dl (2.5-4.9)
[2018-09-21 08:03] LABS: ANION GAP 10 (5-13); BLOOD UREA NITROGEN 52 mg/dl (7-20); CALCIUM 9.1 mg/dl (8.4-10.2); CARBON DIOXIDE 25 mmol/L (21-31); CHLORIDE 102 mmol/L (97-110); Estimated GFR 18 mL/min (>60); GLUCOSE 111 mg/dl (70-220); SODIUM 137 mmol/L (135-144)
[2018-09-21] MEDS: HYDROCODONE/APAP (10/325) TAB PO ×2 (08:04→15:23)
[2018-09-21] MEDS: ALLOPURINOL 100 MG TAB PO (08:12)
[2018-09-21] MEDS: FLUCONAZOLE 200 MG TAB PO (08:13)
[2018-09-21] MEDS: AMMONIUM LACTATE 12% 225 GM LOT TOP (08:13)
[2018-09-21] MEDS: FAMOTIDINE 20 MG TAB PO (08:13)
[2018-09-21] MEDS: QUETIAPINE 25 MG TAB PO ×2 (08:13→21:27)
[2018-09-21] MEDS: CLOTRIMAZOLE 1% 30 GM CR TOP ×2 (08:13→21:28)
[2018-09-21] MEDS: CEFTRIAXONE 1 GM/50 ML (PMX) 50 ML IVPB (08:37)
[2018-09-21] MEDS: LORAZEPAM 2 MG INJ IV (15:22)
[2018-09-21] MEDS: ALTEPLASE (CATHFLO) 2 MG INJ CATHETER (16:27)
[2018-09-21] MEDS: SENNA/DOCUSATE NA (8.6MG/50MG) TAB PO (21:27)
[2018-09-21] MEDS: traZODone 50 MG TAB PO (21:27)
[2018-09-22] MEDS: morphine 2 MG INJ IV ×2 (00:15→10:08)
[2018-09-22] MEDS: METOCLOPRAMIDE 5 MG TAB PO ×3 (05:38→21:32)
[2018-09-22] MEDS: FLUCONAZOLE 200 MG TAB PO (08:45)
[2018-09-22] MEDS: FAMOTIDINE 20 MG TAB PO (08:45)
[2018-09-22] MEDS: ALLOPURINOL 100 MG TAB PO (08:45)
[2018-09-22] MEDS: QUETIAPINE 25 MG TAB PO ×2 (08:45→20:32)
[2018-09-22] MEDS: CLOTRIMAZOLE 1% 30 GM CR TOP ×2 (08:46→21:32)
[2018-09-22] MEDS: AMMONIUM LACTATE 12% 225 GM LOT TOP (08:46)
[2018-09-22 08:50] LABS: ADD MAN DIFF? NO
[2018-09-22 08:58] LABS: ABNORMAL IP MESSAGE 1; BASOPHIL # 0.1 10^3/ul (0.0-0.1); BASOPHILS % 0.9 % (0.0-2.0); EOSINOPHILS # 0.8 10^3/ul (0.0-0.5); EOSINOPHILS % 6.2 % (0.0-7.0); HEMATOCRIT 27.4 % (42.0-52.0); HEMOGLOBIN 8.6 g/dl (14.0-18.0); LYMPHOCYTES % 7.7 % (15.0-51.0); MEAN CORPUSCULAR HEMOGLOBIN 29.4 pg (29.0-33.0); MEAN CORPUSCULAR HGB CONC 31.4 g/dl (32.0-37.0); MEAN CORPUSCULAR VOLUME 93.5 fl (82.0-101.0); MEAN PLATELET VOLUME 10.2 fl (7.4-10.4); MONOCYTE # 2.2 10^3/ul (0.3-0.9); MONOCYTES % 17.2 % (0.0-11.0); NEUTROPHIL # 8.7 10^3/ul (1.6-7.5); NEUTROPHILS % 67.1 % (39.0-77.0); PLATELET COUNT 393 10^3/UL (140-415); POSITIVE DIFF @See below; RED BLOOD COUNT 2.93 10^6/ul (4.70-6.10); RED CELL DISTRIBUTION WIDTH 15.8 % (11.5-14.5)
[2018-09-22 08:58] LABS: WHITE BLOOD COUNT 12.9 10^3/ul (4.8-10.8)
[2018-09-22 09:10] LABS: POTASSIUM 4.8 mmol/L (3.5-5.1); SODIUM 138 mmol/L (135-144)
[2018-09-22 09:15] LABS: BLOOD UREA NITROGEN 53 mg/dl (7-20); CALCIUM 9.2 mg/dl (8.4-10.2); CARBON DIOXIDE 25 mmol/L (21-31); CREATININE 3.39 mg/dl (0.61-1.24); Estimated GFR 19 mL/min (>60); GLUCOSE 91 mg/dl (70-220); MAGNESIUM 1.8 mg/dl (1.7-2.5)
[2018-09-22 09:15] LABS: PHOSPHORUS 5.9 mg/dl (2.5-4.9)
[2018-09-22 10:06] LABS: ANION GAP 14 (5-13); CHLORIDE 99 mmol/L (97-110)
[2018-09-22] MEDS: CEFTRIAXONE 1 GM/50 ML (PMX) 50 ML IVPB (10:08)
[2018-09-22] MEDS: HYDROCODONE/APAP (10/325) TAB PO ×2 (15:40→21:32)
[2018-09-22] MEDS: traZODone 50 MG TAB PO (20:32)
[2018-09-22] MEDS: SENNA/DOCUSATE NA (8.6MG/50MG) TAB PO (20:33)
[2018-09-23] MEDS: METOCLOPRAMIDE 5 MG TAB PO ×3 (05:18→21:47)
[2018-09-23] MEDS: HYDROCODONE/APAP (10/325) TAB PO ×3 (05:19→20:30)
[2018-09-23] MEDS: morphine 2 MG INJ IV ×2 (06:51→16:41)
[2018-09-23 08:27] LABS: ADD MAN DIFF? NO
[2018-09-23 08:30] LABS: ABNORMAL IP MESSAGE 1; BASOPHIL # 0.1 10^3/ul (0.0-0.1); BASOPHILS % 1.1 % (0.0-2.0); EOSINOPHILS # 0.8 10^3/ul (0.0-0.5); EOSINOPHILS % 7.4 % (0.0-7.0); HEMATOCRIT 26.4 % (42.0-52.0); HEMOGLOBIN 8.4 g/dl (14.0-18.0); LYMPHOCYTES # 0.9 10^3/ul (0.8-2.9); LYMPHOCYTES % 8.4 % (15.0-51.0); MEAN CORPUSCULAR HEMOGLOBIN 29.3 pg (29.0-33.0); MEAN CORPUSCULAR HGB CONC 31.8 g/dl (32.0-37.0); MEAN PLATELET VOLUME 9.7 fl (7.4-10.4); MONOCYTE # 2.1 10^3/ul (0.3-0.9); MONOCYTES % 20.1 % (0.0-11.0); NEUTROPHIL # 6.6 10^3/ul (1.6-7.5); NEUTROPHILS % 62.1 % (39.0-77.0); PLATELET COUNT 416 10^3/UL (140-415); POSITIVE DIFF @See below; RED BLOOD COUNT 2.87 10^6/ul (4.70-6.10); RED CELL DISTRIBUTION WIDTH 15.4 % (11.5-14.5)
[2018-09-23 08:30] LABS: WHITE BLOOD COUNT 10.6 10^3/ul (4.8-10.8)
[2018-09-23 08:49] LABS: PHOSPHORUS 5.7 mg/dl (2.5-4.9)
[2018-09-23 08:49] LABS: MAGNESIUM 1.8 mg/dl (1.7-2.5)
[2018-09-23 08:50] LABS: ANION GAP 12 (5-13); BLOOD UREA NITROGEN 56 mg/dl (7-20); CALCIUM 9.2 mg/dl (8.4-10.2); CARBON DIOXIDE 25 mmol/L (21-31); CHLORIDE 101 mmol/L (97-110); CREATININE 3.44 mg/dl (0.61-1.24); Estimated GFR 19 mL/min (>60); GLUCOSE 96 mg/dl (70-220); POTASSIUM 4.7 mmol/L (3.5-5.1); SODIUM 138 mmol/L (135-144)
[2018-09-23] MEDS: CEFTRIAXONE 1 GM/50 ML (PMX) 50 ML IVPB (08:59)
[2018-09-23] MEDS: FAMOTIDINE 20 MG TAB PO (09:00)
[2018-09-23] MEDS: DOCUSATE SODIUM 100 MG CAP PO (09:00)
[2018-09-23] MEDS: QUETIAPINE 25 MG TAB PO ×2 (09:00→20:29)
[2018-09-23] MEDS: FLUCONAZOLE 200 MG TAB PO (09:00)
[2018-09-23] MEDS: ALLOPURINOL 100 MG TAB PO (09:04)
[2018-09-23] MEDS: CLOTRIMAZOLE 1% 30 GM CR TOP ×2 (09:05→20:31)
[2018-09-23] MEDS: AMMONIUM LACTATE 12% 225 GM LOT TOP (09:08)
[2018-09-23] MEDS: SENNA/DOCUSATE NA (8.6MG/50MG) TAB PO (20:28)
[2018-09-23] MEDS: traZODone 50 MG TAB PO (21:47)
[2018-09-24] MEDS: morphine 2 MG INJ IV ×3 (04:05→21:50)
[2018-09-24] MEDS: METOCLOPRAMIDE 5 MG TAB PO ×3 (06:07→21:50)
[2018-09-24] MEDS: ACETAMINOPHEN 325 MG TAB PO (08:02)
[2018-09-24] MEDS: CLOTRIMAZOLE 1% 30 GM CR TOP ×2 (08:02→21:51)
[2018-09-24] MEDS: FAMOTIDINE 20 MG TAB PO (08:03)
[2018-09-24] MEDS: AMMONIUM LACTATE 12% 225 GM LOT TOP (08:03)
[2018-09-24] MEDS: ALLOPURINOL 100 MG TAB PO (08:03)
[2018-09-24] MEDS: FLUCONAZOLE 200 MG TAB PO (08:03)
[2018-09-24] MEDS: QUETIAPINE 25 MG TAB PO ×2 (08:03→21:50)
[2018-09-24 08:40] LABS: ADD MAN DIFF? NO
[2018-09-24 08:42] LABS: ABNORMAL IP MESSAGE 1; BASOPHIL # 0.1 10^3/ul (0.0-0.1); EOSINOPHILS # 0.8 10^3/ul (0.0-0.5); EOSINOPHILS % 8.3 % (0.0-7.0); HEMATOCRIT 28.2 % (42.0-52.0); LYMPHOCYTES % 10.3 % (15.0-51.0); MEAN CORPUSCULAR HEMOGLOBIN 29.6 pg (29.0-33.0); MEAN CORPUSCULAR HGB CONC 31.9 g/dl (32.0-37.0); MEAN CORPUSCULAR VOLUME 92.8 fl (82.0-101.0); MEAN PLATELET VOLUME 9.8 fl (7.4-10.4); MONOCYTES % 20.6 % (0.0-11.0); NEUTROPHIL # 5.6 10^3/ul (1.6-7.5); NEUTROPHILS % 58.1 % (39.0-77.0); PLATELET COUNT 495 10^3/UL (140-415); POSITIVE DIFF @See below; RED BLOOD COUNT 3.04 10^6/ul (4.70-6.10); RED CELL DISTRIBUTION WIDTH 15.5 % (11.5-14.5)
[2018-09-24 08:42] LABS: WHITE BLOOD COUNT 9.7 10^3/ul (4.8-10.8)
[2018-09-24 09:02] LABS: ANION GAP 13 (5-13); BLOOD UREA NITROGEN 57 mg/dl (7-20); CALCIUM 9.5 mg/dl (8.4-10.2); CARBON DIOXIDE 26 mmol/L (21-31); CHLORIDE 99 mmol/L (97-110); CREATININE 3.43 mg/dl (0.61-1.24); Estimated GFR 19 mL/min (>60); GLUCOSE 104 mg/dl (70-220); MAGNESIUM 1.8 mg/dl (1.7-2.5); PHOSPHORUS 6.1 mg/dl (2.5-4.9); POTASSIUM 5.2 mmol/L (3.5-5.1); SODIUM 138 mmol/L (135-144)
[2018-09-24] MEDS: HYDROCODONE/APAP (10/325) TAB PO (09:51)
[2018-09-24] MEDS: CEFTRIAXONE 1 GM/50 ML (PMX) 50 ML IVPB (09:51)
[2018-09-24] MEDS: SENNA/DOCUSATE NA (8.6MG/50MG) TAB PO (21:50)
[2018-09-24] MEDS: traZODone 50 MG TAB PO (21:50)
[2018-09-25] MEDS: HYDROCODONE/APAP (10/325) TAB PO ×2 (00:18→15:55)
[2018-09-25] MEDS: SACCHAROMYCES BOULARDII 250 MG CAP PO (00:18)
[2018-09-25] MEDS: METOCLOPRAMIDE 5 MG TAB PO ×2 (05:47→21:46)
[2018-09-25] MEDS: ACETAMINOPHEN 325 MG TAB PO (05:53)
[2018-09-25 07:15] LABS: ADD MAN DIFF? NO
[2018-09-25 07:22] LABS: ABNORMAL IP MESSAGE 1; BASOPHIL # 0.1 10^3/ul (0.0-0.1); BASOPHILS % 0.8 % (0.0-2.0); EOSINOPHILS # 0.5 10^3/ul (0.0-0.5); EOSINOPHILS % 4.8 % (0.0-7.0); HEMATOCRIT 24.8 % (42.0-52.0); LYMPHOCYTES # 0.9 10^3/ul (0.8-2.9); LYMPHOCYTES % 8.5 % (15.0-51.0); MEAN CORPUSCULAR HEMOGLOBIN 29.2 pg (29.0-33.0); MEAN CORPUSCULAR HGB CONC 32.3 g/dl (32.0-37.0); MEAN CORPUSCULAR VOLUME 90.5 fl (82.0-101.0); MONOCYTE # 2.6 10^3/ul (0.3-0.9); MONOCYTES % 23.5 % (0.0-11.0); NEUTROPHIL # 6.7 10^3/ul (1.6-7.5); PLATELET COUNT 486 10^3/UL (140-415); POSITIVE DIFF @See below; RED BLOOD COUNT 2.74 10^6/ul (4.70-6.10); RED CELL DISTRIBUTION WIDTH 15.7 % (11.5-14.5)
[2018-09-25 07:40] LABS: ANION GAP 12 (5-13); BLOOD UREA NITROGEN 59 mg/dl (7-20); CALCIUM 9.1 mg/dl (8.4-10.2); CARBON DIOXIDE 23 mmol/L (21-31); CHLORIDE 99 mmol/L (97-110); CREATININE 3.39 mg/dl (0.61-1.24); Estimated GFR 19 mL/min (>60); GLUCOSE 92 mg/dl (70-220); MAGNESIUM 1.8 mg/dl (1.7-2.5); PHOSPHORUS 5.6 mg/dl (2.5-4.9); POTASSIUM 4.7 mmol/L (3.5-5.1); SODIUM 134 mmol/L (135-144)
[2018-09-25] MEDS: FAMOTIDINE 20 MG TAB PO (09:18)
[2018-09-25] MEDS: FLUCONAZOLE 200 MG TAB PO (09:18)
[2018-09-25] MEDS: ALLOPURINOL 100 MG TAB PO (09:18)
[2018-09-25] MEDS: L ACIDOPHIL/B LACTIS/B LONGUM CAPSULE PO ×2 (09:18→21:27)
[2018-09-25] MEDS: QUETIAPINE 25 MG TAB PO ×2 (09:18→21:27)
[2018-09-25] MEDS: AMMONIUM LACTATE 12% 225 GM LOT TOP (09:19)
[2018-09-25] MEDS: CLOTRIMAZOLE 1% 30 GM CR TOP ×2 (09:20→21:34)
[2018-09-25] MEDS: CEFTRIAXONE 1 GM/50 ML (PMX) 50 ML IVPB (09:30)
[2018-09-25] MEDS: ENOXAPARIN 30 MG/0.3 ML SYG SC (09:32)
[2018-09-25] MEDS: traZODone 50 MG TAB PO (21:32)
[2018-09-25] MEDS: morphine 2 MG INJ IV (21:33)
[2018-09-26] MEDS ORDERED: LEVOFLOXACIN 250 MG TAB PO (06:00)
[2018-09-26] MEDS: LEVOFLOXACIN 500 MG TAB PO (06:28)
[2018-09-26 06:39] LABS: ADD MAN DIFF? NO
[2018-09-26 07:00] LABS: ABNORMAL IP MESSAGE 1; BASOPHIL # 0.1 10^3/ul (0.0-0.1); BASOPHILS % 0.8 % (0.0-2.0); EOSINOPHILS # 0.7 10^3/ul (0.0-0.5); EOSINOPHILS % 6.3 % (0.0-7.0); HEMOGLOBIN 8.9 g/dl (14.0-18.0); LYMPHOCYTES % 9.1 % (15.0-51.0); MEAN CORPUSCULAR HEMOGLOBIN 29.1 pg (29.0-33.0); MEAN CORPUSCULAR HGB CONC 31.8 g/dl (32.0-37.0); MEAN CORPUSCULAR VOLUME 91.5 fl (82.0-101.0); MEAN PLATELET VOLUME 9.9 fl (7.4-10.4); MONOCYTE # 1.9 10^3/ul (0.3-0.9); NEUTROPHIL # 6.9 10^3/ul (1.6-7.5); NEUTROPHILS % 64.1 % (39.0-77.0); PLATELET COUNT 544 10^3/UL (140-415); POSITIVE DIFF @See below; RED BLOOD COUNT 3.06 10^6/ul (4.70-6.10); RED CELL DISTRIBUTION WIDTH 15.7 % (11.5-14.5)
[2018-09-26 07:00] LABS: WHITE BLOOD COUNT 10.7 10^3/ul (4.8-10.8)
[2018-09-26 07:01] LABS: ALANINE AMINOTRANSFERASE 21 IU/L (13-69); ALBUMIN 3.6 g/dl (3.3-4.9); ALBUMIN/GLOBULIN RATIO 0.81; ALKALINE PHOSPHATASE 606 IU/L (42-121); ANION GAP 16 (5-13); ASPARTATE AMINO TRANSFERASE 61 IU/L (15-46); BLOOD UREA NITROGEN 63 mg/dl (7-20); CALCIUM 9.6 mg/dl (8.4-10.2); CARBON DIOXIDE 23 mmol/L (21-31); CHLORIDE 99 mmol/L (97-110); CREATININE 3.73 mg/dl (0.61-1.24); Estimated GFR 17 mL/min (>60); GLUCOSE 134 mg/dl (70-220); SODIUM 138 mmol/L (135-144)
[2018-09-26 08:48] LABS: MAGNESIUM 1.9 mg/dl (1.7-2.5)
[2018-09-26 08:48] LABS: PHOSPHORUS 6.9 mg/dl (2.5-4.9)
[2018-09-26] MEDS: QUETIAPINE 25 MG TAB PO ×2 (09:00→21:42)
[2018-09-26] MEDS: L ACIDOPHIL/B LACTIS/B LONGUM CAPSULE PO ×2 (09:14→21:43)
[2018-09-26] MEDS: ALLOPURINOL 100 MG TAB PO (09:19)
[2018-09-26] MEDS: FAMOTIDINE 20 MG TAB PO (09:19)
[2018-09-26] MEDS: METOCLOPRAMIDE 5 MG TAB PO ×2 (09:19→21:42)
[2018-09-26] MEDS: AMMONIUM LACTATE 12% 225 GM LOT TOP (09:21)
[2018-09-26] MEDS: CLOTRIMAZOLE 1% 30 GM CR TOP ×2 (09:21→21:41)
[2018-09-26] MEDS: ENOXAPARIN 30 MG/0.3 ML SYG SC (09:26)
[2018-09-26] MEDS: HYDROCODONE/APAP (10/325) TAB PO (09:50)
[2018-09-26] MEDS: traZODone 50 MG TAB PO (21:43)
[2018-09-26] MEDS: morphine 2 MG INJ IV (21:44)
[2018-09-27] MEDS: LEVOFLOXACIN 250 MG TAB PO (06:31)
[2018-09-27] MEDS: FAMOTIDINE 20 MG TAB PO (08:57)
[2018-09-27] MEDS: ALLOPURINOL 100 MG TAB PO (08:58)
[2018-09-27] MEDS: L ACIDOPHIL/B LACTIS/B LONGUM CAPSULE PO (08:58)
[2018-09-27] MEDS: METOCLOPRAMIDE 5 MG TAB PO (08:58)
[2018-09-27] MEDS: QUETIAPINE 25 MG TAB PO (08:58)
[2018-09-27] MEDS: ENOXAPARIN 30 MG/0.3 ML SYG SC (09:07)
[2018-09-27] MEDS: AMMONIUM LACTATE 12% 225 GM LOT TOP (09:11)
[2018-09-27] MEDS: CLOTRIMAZOLE 1% 30 GM CR TOP (09:11)
[2018-09-27] MEDS: HYDROCODONE/APAP (10/325) TAB PO (10:12)
[2018-09-27 11:43] LABS: ANION GAP 17 (5-13); BLOOD UREA NITROGEN 68 mg/dl (7-20); CALCIUM 9.2 mg/dl (8.4-10.2); CARBON DIOXIDE 20 mmol/L (21-31); CHLORIDE 98 mmol/L (97-110); CREATININE 4.02 mg/dl (0.61-1.24); Estimated GFR 16 mL/min (>60); GLUCOSE 91 mg/dl (70-220); MAGNESIUM 1.8 mg/dl (1.7-2.5); PHOSPHORUS 6.1 mg/dl (2.5-4.9); POTASSIUM 5.3 mmol/L (3.5-5.1); SODIUM 135 mmol/L (135-144)
== END 2018-09-27 15:10 | disposition home health service (06) | DRG 853 ==
LOC: MS1 09-10 15:37 → E/R 12:09 → 5EC 09-11 22:46 → REC 16:42 → ICU 23:58
PROC: 0DU907Z Supplement Duodenum with Autologous Tissue Substitute, Open Approach (ICD-10-PCS; principal; 2018-09-08 19:00)
PROC: 0W9G0ZZ Drainage of Peritoneal Cavity, Open Approach (ICD-10-PCS; 2018-09-08 19:00)
PROC: 0W9G30Z Drainage of Peritoneal Cavity with Drainage Device, Percutaneous Approach (ICD-10-PCS; 2018-09-08 19:38)
PROC: 30233N1 Transfusion of Nonautologous Red Blood Cells into Peripheral Vein, Percutaneous Approach (ICD-10-PCS; 2018-09-08 19:38)
PROC: 0HBRXZZ Excision of Toe Nail, External Approach (ICD-10-PCS; 2018-09-08 19:38)
DX: A41.9 Sepsis, unspecified organism (principal); K65.9 Peritonitis, unspecified; K26.5 Chronic or unspecified duodenal ulcer with perforation; G93.41 Metabolic encephalopathy; N17.0 Acute kidney failure with tubular necrosis; K65.1 Peritoneal abscess; I13.0 Hypertensive heart and chronic kidney disease with heart failure and stage 1 through stage 4 chronic kidney disease, or unspecified chronic kidney disease; E87.2 Acidosis; E87.0 Hyperosmolality and hypernatremia; I42.9 Cardiomyopathy, unspecified; J90 Pleural effusion, not elsewhere classified; L97.428 Non-pressure chronic ulcer of left heel and midfoot with other specified severity; B95.61 Methicillin susceptible Staphylococcus aureus infection as the cause of diseases classified elsewhere; B35.1 Tinea unguium; D64.9 Anemia, unspecified; E87.5 Hyperkalemia; E78.5 Hyperlipidemia, unspecified; F17.200 Nicotine dependence, unspecified, uncomplicated; F32.9 Major depressive disorder, single episode, unspecified; F20.9 Schizophrenia, unspecified; F14.10 Cocaine abuse, uncomplicated; F15.10 Other stimulant abuse, uncomplicated; I50.9 Heart failure, unspecified; I27.20 Pulmonary hypertension, unspecified; L84 Corns and callosities; M10.9 Gout, unspecified; N18.9 Chronic kidney disease, unspecified; R62.7 Adult failure to thrive; Z59.0 Homelessness; Z68.25 Body mass index [BMI] 25.0-25.9, adult
CPT/HCPCS: 36415; 36430; 36600; 71045; 74176; 76705; 76775; 77012; 80048; 80053; 80061; 80307; 81001; 81003; 82043; 82150; 82803; 82945; 82962; 83036; 83605; 83690; 83735; 83880; 84100; 84145; 84155; 84300; 84443; 84484; 84560; 85014; 85018; 85025; 85610; 85730; 86140; 86850; 86900; 86901; 86920; 87040; 87070; 87075; 87086; 87102; 87116; 89051; 93005; 93306; 93922; 96374; 96375; 97110; 97116; 97162; 97530; 99291-25